=== PATIENT | male | born 1975 | race African-American/Black ===

== ENCOUNTER 2017-05-22 18:48 | Emergency (ER) | payer OTHER, MEDICAID ==
[2017-05-22 19:08] VITALS: BP 127/71
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
== END 2017-05-22 20:21 | disposition home or self-care (01) ==
LOC: ER 18:48
DX: M54.5 Low back pain (principal); G89.29 Other chronic pain; M54.9 Dorsalgia, unspecified; M25.561 Pain in right knee; V87.7XXA Person injured in collision between other specified motor vehicles (traffic), initial encounter; F17.200 Nicotine dependence, unspecified, uncomplicated
CPT/HCPCS: 99283

== ENCOUNTER 2018-12-03 15:00 | Emergency (ER) | payer SELFPAY ==
[2018-12-03] MEDS ORDERED: KETOROLAC TROMETHAMINE INJ/PF 30 MG/1 ML SDV IM ONE (15:57)
--- NOTE | 2018-12-03 16:00 | ER Document Report ---
ED Medical Screen (RME) - General Chief Complaint: Groin Pain Stated Complaint: GROIN PAIN Time Seen by Provider: 12/03/18 15:51 Notes: Patient is a 43-year-old male who presents to the emergency department today for the chief complaint of right upper leg pain. Patient states this is been present for 3 days. 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 Patient states he was pushing a lot of asphalt with a pull when he developed the right upper leg pain. Patient is unsure if he pulled something. Patient denies redness or drainage from the area. Patient reports it started as an ache and is continued to get worse. Patient denies testicular pain or swelling. Patient denies urinary symptoms. Patient states he does have a history of borderline diabetes and would like to be checked out for his sugars as he feels like he has needles in his feet. TRAVEL OUTSIDE OF THE [place] IN LAST 30 DAYS: No - Related Data Allergies/Adverse Reactions: No Known Allergies Allergy (Verified 12/03/18 15:00) Past Medical History Renal/ Medical History: Denies: Hx Peritoneal Dialysis - Immunizations Immunizations up to date: Yes Hx Diphtheria, Pertussis, Tetanus Vaccination: Yes Physical Exam - Vital signs Vitals: Temp Pulse Resp BP Pulse Ox 98.6 F 67 14 128/74 H 96 12/03/18 15:04 12/03/18 15:04 12/03/18 15:04 12/03/18 15:04 12/03/18 15:04 - Extremities Notes: There is no edema or erythema noted to the right upper leg. There was point tenderness noted to the right medial aspect of the right upper leg. There is no palpable abscess. Course - Re-evaluation Re-evalutation: 12/03/18 15:59 I performed a brief assessment in triage which did not show any obvious abscess or deformity to the right upper leg. Patient will require a thorough examination in the back to include the inguinal area to rule out obvious hernia that could be causing this pain. Will give patient a dose of anti-inflammatory. I have greeted and performed a rapid initial assessment of this patient. A comprehensive ED assessment and evaluation of the patient, analysis of test results and completion of the medical decision making process will be conducted by additional ED providers. - Vital Signs Vital signs: Temp Pulse Resp BP Pulse Ox 98.6 F 67 14 128/74 H 96 12/03/18 15:04 12/03/18 15:04 12/03/18 15:04 12/03/18 15:04 12/03/18 15:04
--- NOTE | 2018-12-03 16:59 | ER Document Report ---
HPI - HPI Patient complains to provider of: right groin pain, blood sugar check, low back pain Time Seen by Provider: 12/03/18 15:51 Onset/Duration: Gradual, Waxing and waning Quality of pain: Achy Severity: Moderate Pain Level: 3 Context: This is a 43 yr old male pt with the listed pmh, presenting with an acute exacerbation of their chronic lower right back pain. Patient states that this has been ongoing for few days. States he is on pain management for chronic back pain secondary to degenerative disc disease and a "pelvic cyst". States he has an appointment pain management tomorrow and he only has a half of a Percocet left. He states he has been taking extra Percocet secondary to his acute exacerbation of his pain. He states usually his Percocet controls his pain however is has not this time. He states he plans to talk to his pain management doctor about increasing his dose or adding something to his regimen to better control his pain. He denies any other medications. No fall or trauma. He denies any withdrawal symptoms. He also complains of a lump in his right upper leg/groin that is tender to palpate. He also complains of some hematuria and frequency. Denies dysuria, penile discharge/lesions, testicular pain/swelling, or concerns for STDs. Denies history of hernias. He has normal bowel movements. Patient states that the pain is a sharp achy 8 out of 10 pain with radiation down right leg. states this is all typical of his usual pain, nothing different other than it just isn't controlled with his percocet and he is about to run out. Patient states that movement and palpation make the pain worse and rest makes the pain better. Patient denies any numbness, tingling, other change of bowel or bladder habits or signs or symptoms of saddle anesthesia. Patient states that secondary to the pain, they have come to the emergency department. No spinal surgeries. No other falls or trauma. no IV drug use. otc meds haven't helped in the past, nor do muscle relaxers and steroids per pt. no hx of diabetes or asthma. no recent abx or steroids. no fevers, uti sx, or genitalia complaints. pt able to walk. pt hasn't sought care until now. he also states he has a fam hx of diabetes and he would like his sugar checked. he denies any diabetic sx. Patient denies all other complaints at this time. Exacerbated by: Movement Relieved by: Remaining still Similar symptoms previously: Yes Recently seen / treated by doctor: No - ROS Systems Reviewed and Negative: Yes All other systems reviewed and negative - To include 10 systems, unless mentioned in the hpi. - DERM Skin Color: Normal Past Medical History - General Information source: Patient - Social History Smoking Status: Current Every Day Smoker Chew tobacco use (# tins/day): No Frequency of alcohol use: None Drug Abuse: None Family History: DM Patient has suicidal ideation: No Patient has homicidal ideation: No Endocrine Medical History: Reports: Hx Diabetes Mellitus Type 2 - Borderline Diabetes-pt thinks he may be but he hasn't been checked. +FH Renal/ Medical History: Denies: Hx Benign Prostatic Hyperplasia, Hx End Stage Renal Disease, Hx Epididymitis, Hx Hydrocele, Hx Kidney Stones, Hx Peritoneal Dialysis, Hx Renal Insufficiency, Hx Testicular Torsion Musculoskeletal Medical History: Reports Hx Arthritis, Reports Other - degenerative disc disease-on pain management Infectious Medical History: Reports: None Surgical Hx: Negative Past Surgical History: Reports: None. Denies: Hx Herniorrhaphy, Hx Inguinal Hernia - Immunizations Immunizations up to date: Yes Hx Diphtheria, Pertussis, Tetanus Vaccination: Yes Vertical Provider Document - CONSTITUTIONAL Agree With Documented VS: Yes Exam Limitations: No Limitations General Appearance: No Apparent Distress Notes: Vital signs: All vital signs were reviewed per nursing notes. Gen. Appearance: Nontoxic, patient of stated age, sitting comfortably in the bed. pleasant, middle aged black male, smiling, speaking in full sentences, in no sign of pain or resp distress, nontoxic, on the phone, asking how much longer it's going to be until he is discharged and seen by a provider, no one is with him. Psychiatric: Alert and oriented x3, pleasant and very conversational, normal affect. Skin: Warm, pink, dry, normal turgor, no rashes. no grossly visible overlying skin changes or signs of trauma. HEENT: Normocephalic, atraumatic, no mckeon signs. no raccoon eyes, pupils are equal and reactive to light, extraocular muscles intact, mucosal membranes moist, pink conjunctiva, no pharyngeal erythema no tonsilar exudate. no drooling, tripoding, voice change or stridor, uvula midline. tongue protrudes midline Neck: Supple, no tenderness, no lymphadenopathy. full rom and full strength. no meningeal signs. no signs of central cord syndrome CV: Regular rate and rhythm, Lungs: Clear to auscultation bilaterally, no wheezes, symmetrical chest rise. no chest wall ttp Abdomen: Soft, nontender, nondistended, good bowel sounds, no rebound, rigidity, guarding or peritoneal signs. No CVA tenderness bilaterally. This is a nonacute abdomen. No tenderness over McBurney's point. no grossly visible or palpable abdominal hernias Genitalia: pt deferred: However, patient does pull his shorts up and to the middle on the right side so I can see his right inguinal region he does have a small lymph node there that is ttp. There is no hernia or erythema from the best I can tell on his limited exam as he does not want to expose his testicles or penis for examination and he denies any sx or concerns or complaints involving them adamently. He repetitively denies any testicular pain/swelling, or penile lesions or concerns. Denies any lumps or pain on the other side. Rectal: deferred; however, no sign of loss of bowel or bladder, no soiling of clothing Back: There is increased tissue tension over the paralumbar musculature on the bilat sidesright is greater than left. Palpation to this region did reproduce patient's pain exactly. There is no tenderness to palpation along the midline of the cervical, thoracic or lumbar spine. There are no step-offs or deformities noted. no overlying skin changes. Extremities: Distal pulses two out of four, good capillary refill, no edema, cyanosis or clubbing. full rom and full strength in all extremities with pain on right hip flexion and extension. no swelling or ttp of the extremities. normal gait. good hand residential support worker. neg alia sign. neg renee squeeze. no drop foot. no shortening or rotation of the limbs. no obvious deformities. Neuro: Cranial nerves II through XII intact, normal speech, cerebellar function intact. Symmetric smile and faces. reflexes wnl. motor and sensation intact to light touch. - INFECTION CONTROL TRAVEL OUTSIDE OF THE [place] IN LAST 30 DAYS: No Course - Re-evaluation Re-evalutation: 12/03/18 17:14 Pt here for an acute exacerbation of his chronic low back pain and right-sided sciatica. He has no sign of cauda equina, spinal cord involvement, or central cord syndrome. ambulates normally while talking on his phone most of his stay in no sign of pain or distress. He is neuro nonfocal. He is also on pain management and admits he only has half a Percocet left. He states this is his usual pain that he sees pain management for-nothing different, just that it currently is no longer controlled with his usual percocet dose. He has an appointment tomorrow at pain management where he plans to request an increase in his dosage/frequency of Percocet. He denies any withdrawal symptoms. He also complains of a lump in his right groin which appears to be a lymph node. He has some mild hematuria and frequency without dysuria. Has any testicular pain/swelling or penile lesions/discharge or concern for STDs. He does not appear to have a hernia. His UA was unremarkable. GC and chlamydia pending. he didn't want prophylactic tx. Urine culture also pending. Advised we will call with any abnormal results require change in plan of care. He can continue to take his Percocet for pain and follow-up with his pain management doctor for possible adjustment of his meds. advised symptomatic care. Ice/heat to the area. TENS unit. otc lidocaine patches to his back. advised if the lymphonode did not resolve after a week or 2 that he may need to have it biopsied by his PCP and to follow-up closely with this. Patient also requested to be checked for "diabetes". His Accu-Chek was within normal limits. Advised him his sugar was okay today however needs to follow-up with PCP for further workup of diabetes as this simple random blood glucose doesn't dictate if he has diabetes or not, and if he any other further concerns regarding this. Advised to f/u with pcp/pain management in 1-2 days. return for any worsening symptoms. vss. well appearing. satting well on ra. neurononfocal. pt understands and agrees to plan. On reexam, pt improved with tx listed. remained stable. nontoxic. well appearing. pain controlled. tolerating po. requesting to go home. 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 he refused steroids and muscle relaxers stating they don't work. pt refused imaging and i also do not think it is warranted as he has no fall or trauma or any new sx from his chronic ones. Documentation achieved through voice recording which my lead to some occasional accidental typographical errors. Extensive efforts have been made to proof read documentation to make sure these are the least as possible. Category Date Time Status Accucheck (ED) NOW Care 12/03/18 15:56 Active PCT AccuChek Documentation NOW Care 12/03/18 15:56 Active [facility] PCR URINE INHOUSE [MO] Stat Lab 12/03/18 17:08 Uncollected UA [URINALYSIS] [URIN] Stat Lab 12/03/18 17:10 Received URINE CULTURE [MC] Stat Lab 12/03/18 17:10 Received Ketorolac Tromethamine [Toradol Inj/Pf 30 mg/1 ml Sdv] Med 12/03/18 15:57 Discontinued 30 mg IM NOW ONE 12/08/18 19:41 - Vital Signs Vital signs: Temp Pulse Resp BP Pulse Ox 98.6 F 67 14 128/74 H 96 12/03/18 15:04 12/03/18 15:04 12/03/18 15:04 12/03/18 15:04 12/03/18 15:04 12/03/18 17:17 Temp Pulse Resp BP Pulse Ox 12/03/18 15:04 98.6 F 67 14 128/74 H 96 Temp Pulse Resp BP Pulse Ox 12/03/18 17:55 97.7 F 58 L 18 151/89 H 100 12/03/18 15:04 98.6 F 67 14 128/74 H 96 - Laboratory Laboratory results interpreted by me: Labs- Entire Visit 12/03/18 12/03/18 12/03/18 16:08 17:05 17:10 POC Glucose 79 Urine Color YELLOW Urine Appearance CLEAR Urine pH 6.0 Ur Specific [place] 1.024 Urine Protein NEGATIVE Urine Glucose (UA) NEGATIVE Urine Ketones TRACE H Urine Blood NEGATIVE Urine Nitrite NEGATIVE Urine Bilirubin NEGATIVE Urine Urobilinogen 4.0 H Ur Leukocyte Esterase NEGATIVE Urine WBC (Auto) 0 Urine RBC (Auto) 2 Squamous Epi Cells Auto <1 Urine Mucus (Auto) FEW Urine Ascorbic Acid NEGATIVE Chlamydia DNA (PCR) NOT DETECTED N.gonorrhoeae DNA (PCR) NOT DETECTED Discharge - Discharge Clinical Impression: Lymphadenopathy, inguinal Chronic low back pain with right-sided sciatica Qualifiers: Back pain laterality: right Qualified Code(s): M54.41 - Lumbago with sciatica, right side; G89.29 - Other chronic pain Chronic pain Qualifiers: Chronic pain type: other chronic pain Qualified Code(s): G89.29 - Other chronic pain Condition: Good Disposition: HOME, SELF-CARE Instructions: Chronic Back Pain ([facility]), Lymphadenopathy ([facility]), Sciatica ([facility]) Additional Instructions: Follow-up with PCP/pain management in 1 to 2 days. you can use over the counter lidocaine patches to the area. ice/heat to the area. f/u with your pain management doctor for possible adjustment of your pain meds if your current pain medicine regimen isn't controlling your pain. over the counter TENS unit. you need to f/u with your pcp for recheck of your right inguinal lymph node as you may need a biopsy of it if it doesn't resolve as discussed. Return for any worsening symptoms.
[2018-12-03 17:39] LABS: APPEARANCE,URINE CLEAR; BILIRUBIN,URINE NEGATIVE (NEGATIVE); COLOR,URINE YELLOW; GLUCOSE, URINE NEGATIVE (NEGATIVE); KETONES,URINE TRACE mg/dL (NEGATIVE); LEUKOCYTE ESTERASE,URINE NEGATIVE (NEGATIVE); NITRITE,URINE NEGATIVE (NEGATIVE); PROTEIN,URINE NEGATIVE (NEGATIVE); URINE SPECIFIC GRAVITY 1.024
[2018-12-03 17:58] VITALS: BP 151/89
[2018-12-03 18:54] LABS: CHLAM PCR NOT DETECTED (NOT DETECT)
== END 2018-12-03 17:58 | disposition home or self-care (01) ==
LOC: ER 15:00
DX: M54.41 Lumbago with sciatica, right side (principal); R59.0 Localized enlarged lymph nodes; G89.29 Other chronic pain; R10.31 Right lower quadrant pain; F17.200 Nicotine dependence, unspecified, uncomplicated; E11.9 Type 2 diabetes mellitus without complications; Z79.899 Other long term (current) drug therapy
CPT/HCPCS: 99283; 96372; 87086; 82962; 81001; 87491; 87591; J1885